=== PATIENT | male | born 1995 | race Caucasian/White ===

== ENCOUNTER 2024-01-28 13:44 | Emergency (ER) | payer MEDICAID ==
[~2024-01-28] VITALS: Ht 177.8 cm; Wt 84.0 kg
[2024-01-28 13:49] VITALS: BP 151/90; RESP 18; TEMP 98.2; O2SAT 99
[2024-01-28 13:51] VITALS: PULSE 62
[2024-01-28] MEDS ORDERED: ACETAMINOPHEN 325MG TABLET PO ONE (14:00)
[2024-01-28] MEDS ORDERED: METOCLOPRAMIDE HCL 10MG/2ML VIAL IV ONE (14:00)
[2024-01-28 14:34] LABS: BASOPHILS % 0.9 % (0.0-2.0); EOSINOPHILS % 3.7 % (0.0-5.0); HEMATOCRIT. 47.3 % (42.0-52.0); HEMOGLOBIN. 15.6 g/dL (14.0-18.0); LYMPHOCYTES % 32.4 % (20.0-50.0); MEAN CORPUSCULAR HEMOGLOBIN 28.8 pg (28.0-32.0); MEAN CORPUSCULAR VOLUME 87.3 fL (80.0-94.0); MEAN PLATELET VOLUME 7.4 fl (7.4-10.4); MONOCYTES % 8.4 % (2.0-8.0); NEUTROPHILS % 54.6 % (40.0-76.0); PLATELET 323 x1000/uL (130-400); RED BLOOD CELL COUNT 5.41 mill/uL (4.7-6.1); RED CELL DISTRIBUTION WIDTH 14.4 % (11.6-14.6); WHITE BLOOD COUNT 7.8 x1000/uL (4.5-11.0)
[2024-01-28 14:39] LABS: CHLORIDE 106 mEq/L (98-107); POTASSIUM 3.3 mEq/L (3.5-5.1); SODIUM 138 mEq/L (136-145)
[2024-01-28 14:40] LABS: CALCIUM 9.8 mg/dL (8.7-10.4); CARBON DIOXIDE 23 mEq/L (21-32)
[2024-01-28 14:45] LABS: CREATININE 0.9 mg/dL (0.6-1.3); GLUCOSE 120 mg/dL (70-105); UREA NITROGEN BLOOD 11 mg/dL (9-23)
[2024-01-28 15:05] LABS: TROPONIN I HIGH SENSITIVITY < 4 ng/L (3.0-53)
[2024-01-28] MEDS: LACTATED RINGERS 1,000 ML IV SCH (16:00)
[2024-01-28] MEDS: ACETAMINOPHEN 325MG TABLET PO NR (16:00)
[2024-01-28] MEDS: METOCLOPRAMIDE HCL 10MG/2ML VIAL IV NR (16:00)
== END 2024-01-28 16:02 | disposition home or self-care (01) ==
LOC: ER 13:44
DX: R20.0 Anesthesia of skin (principal); R07.89 Other chest pain; R51.9 Headache, unspecified; Z86.39 Personal history of other endocrine, nutritional and metabolic disease
CPT/HCPCS: 99285; 70450; 71045; 80048; 82962; 85025; 85379; 84484; 36415; 93005; J2765